=== PATIENT | male | born 1970 | race Two or more races ===

== ENCOUNTER 2019-09-05 17:03 | Emergency (ER) | payer OTHER ==
[2019-09-05 17:14] VITALS: BP 109/69; PULSE 79; TEMP 98.6; BMI 28.6
[2019-09-05] MEDS ORDERED: IBUPROFEN 400 MG TABLET (FP) PO ONE ×2 (18:07→18:10)
--- NOTE | 2019-09-05 18:13 | PDOC ---
History of Present Illness - General Chief Complaint: Injury Stated Complaint: FINGER INJURY Time Seen by Provider: 09/05/19 17:16 History Source: Patient Exam Limitations: No Limitations (L index finger laceration sustained 1hr ago) - History of Present Illness Is this a multiple visit Asthma Patient?: No Past History - Travel Close contact w/someone who was outside of country & ill: No - Past Medical History Allergies/Adverse Reactions: Allergies Allergy/AdvReac Type Severity Reaction Status Date / Time Penicillins Allergy Severe Rash Verified 09/05/19 17:14 - Psycho Social/Smoking Cessation Hx Smoking History: Never smoked Hx Alcohol Use: Yes Drug/Substance Use Hx: No Review of Systems - Review of Systems Constitutional: No: Chills, Fever Musculoskeletal: Yes: Other (lac to left index finger). No: Muscle Weakness Neurological: No: Numbness, Paresthesia, Tingling, Weakness *Physical Exam - Vital Signs Last Vital Signs Temp Pulse Resp BP Pulse Ox 98.6 F 79 18 109/69 98 09/05/19 17:11 09/05/19 17:11 09/05/19 17:11 09/05/19 17:11 09/05/19 17:11 - Physical Exam General Appearance: Yes: Nourished HEENT: positive: EOMI, SOPHIA Extremity: positive: Normal Capillary Refill, Normal Range of Motion, Other (L index finger: 2cm linear laceration noted in lateral aspect of finger, no tendon exponsure, FROm with flexion and extension) Neurologic: positive: product advisor II-XII NML intact, Fully Oriented, Alert, Normal Mood/ Affect, Normal Response, Motor Strength 5/5 Procedures - Laceration/Wound Repair Left Upper Finger 1st digit Wound Explored: clean Wound's Depth, Shape: superficial, linear Irrigated w/ Saline: Yes Betadine Prep: Yes Anesthesia: 2% Lidocaine Wound Repaired With: Sutures Suture Size/Type: 4:0 Number of Sutures: 5 Medical Decision Making - Medical Decision Making 09/05/19 18:13 49 years old male with no prior medical history presents with left index finger laceration sustained with a bread knife an hour prior to arrival to emergency room. Patient is up-to-date with tetanus which was given 2 years ago. Physical examination there is 2 cm linear laceration noted in the lateral aspect of the finger shaft and the distal aspect of it. There is no evidence of any tendon exposure. Patient is able to flex and extend without difficulty. His sensation is intact. lac repaired signs and symptoms of infection d/w pt Discharge - Discharge Information Problems reviewed: Yes Clinical Impression/Diagnosis: Laceration of finger Qualifiers: Encounter type: initial encounter Finger: index finger Damage to nail status: without damage Foreign body presence: without foreign body Laterality: left Qualified Code(s): S61.211A - Laceration without foreign body of left index finger without damage to nail, initial encounter Condition: Stable Disposition: HOME - Admission No - Additional Discharge Information Prescription Drug Monitoring Program (I-STOP) results: I-STOP not reviewed - Follow up/Referral Referrals: Ken Redd MD [Staff Physician] - - Patient Discharge Instructions Patient Printed Discharge Instructions: DI for Laceration Repair -- Finger Additional Instructions: Please keep area dry. You may apply bacitracin and dress wound daily. Please return to the emergency room in 10 days for suture removal. Return sooner if there is any redness, discharge, swelling, fever or chills. You may follow-up with hand specialist as indicated in your discharge paper if there is any pain that persists in the finger. - Post Discharge Activity
== END 2019-09-05 18:17 | disposition home or self-care (01) ==
LOC: JERFT 17:03
PROC: 0HQGXZZ Repair Left Hand Skin, External Approach (ICD-10-PCS; principal; 2019-09-05)
DX: S61.211A Laceration without foreign body of left index finger without damage to nail, initial encounter (principal); W26.0XXA Contact with knife, initial encounter; Y93.89 Activity, other specified; Y92.038 Other place in apartment as the place of occurrence of the external cause; Y99.8 Other external cause status
CPT/HCPCS: 99282-25

== ENCOUNTER 2019-09-19 09:36 | Emergency (ER) | payer OTHER ==
[2019-09-19 09:55] VITALS: BP 108/66; PULSE 86; TEMP 98.5; BMI 28.6
--- NOTE | 2019-09-19 10:54 | PDOC ---
Suture Removal/Wound Check HPI - History of Present Illness Chief Complaint: Suture/Staple Removal(Here) Stated Complaint: SUTURE REMOVAL Time Seen by Provider: 09/19/19 10:32 History Source: Yes: Patient Exam Limitations: Yes: No Limitations - Previous ED Treatment Type of procedure performed on last visit: Yes: Laceration Repair Tetanus Immunization: Yes: Up to Date - Onset of Previous Treatment Option to Enter number here: 2 Select one - (for the option above): Weeks Timing/Duration/Severity of Onset: reports: Prior to presentation Past History - Travel Traveled outside of the country in the last 30 days: No Close contact w/someone who was outside of country & ill: No - Past Medical History Allergies/Adverse Reactions: Allergies Allergy/AdvReac Type Severity Reaction Status Date / Time Penicillins Allergy Severe Rash Verified 09/19/19 09:52 - Psycho Social/Smoking Cessation Hx Smoking History: Never smoked Hx Alcohol Use: No Drug/Substance Use Hx: No Suture Removal/Wound Check PE - Physical Exam Laceration/Wound Check Symptoms: reports: None Current Severity Level: None Maximum Severity Level: None Pain Localization: None Location of Laceration/Wound: left: Finger Pain Radiation: None *Review of Systems - Review of Systems Able to Perform ROS?: Yes Constitutional: No: Chills, Fever HEENTM: No: Ear Pain, Nose Congestion, Tinnitus, Hearing Loss, Throat Pain, Throat Swelling, Mouth Pain Respiratory: No: Orthopnea, Shortness of Breath, Wheezing Cardiac (ROS): No: Chest Pain, Lightheadedness, Palpitations ABD/GI: No: Abdominal Distended, Blood Streaked Bowels, Constipated, Diarrhea, Poor Appetite, Poor Fluid Intake, Rectal Bleeding, Vomiting, Indigestion Musculoskeletal: No: Joint Pain, Muscle Pain, Muscle Weakness Integumentary: No: Flushing Neurological: No: Numbness, Paresthesia Endocrine: No: Excessive Sweating *Physical Exam - Vital Signs Last Vital Signs Temp Pulse Resp BP Pulse Ox 98.5 F 86 16 108/66 97 09/19/19 09:52 09/19/19 09:52 09/19/19 09:52 09/19/19 09:52 09/19/19 09:52 - Physical Exam General Appearance: Yes: Nourished, Appropriately Dressed HEENT: positive: SOPHIA, TMs Normal, Pharynx Normal Neck: positive: Supple. negative: Lymphadenopathy (R), Lymphadenopathy (L) Respiratory/Chest: positive: Lungs Clear, Normal Breath Sounds Cardiovascular: positive: Regular Rhythm, Regular Rate Musculoskeletal: positive: Normal Inspection Extremity: positive: Normal Capillary Refill, Other (+ sutures to left 2nd digit ) Integumentary: positive: Swelling Neurologic: positive: Fully Oriented, Alert Medical Decision Making - Medical Decision Making 09/19/19 10:52 49 year old male presents for suture removal from left 2nd digit. STates wash wound daily and apply dressing. Denies fever, chills or drainage from wound. 09/19/19 15:42 suture removal -wound well approximated -5 nylons removed Discharge - Discharge Information Problems reviewed: Yes Clinical Impression/Diagnosis: Visit for suture removal Condition: Good Disposition: HOME - Admission No - Follow up/Referral - Patient Discharge Instructions Patient Printed Discharge Instructions: DI for Suture Removal Additional Instructions: Please wash area daily with soap and water, may apply bacitracin to area Keep open to air or place bandaid. - Post Discharge Activity Work/Back to School Note: Back to Work
== END 2019-09-19 10:56 | disposition home or self-care (01) ==
LOC: JER 09:36 → JERFT 09:36
DX: Z48.817 Encounter for surgical aftercare following surgery on the skin and subcutaneous tissue (principal); Z48.02 Encounter for removal of sutures
CPT/HCPCS: 99281-25